=== PATIENT | female | born 1990 | race Caucasian/White ===

== ENCOUNTER 2017-10-26 14:18 | Emergency (ER) | payer OTHER ==
--- NOTE | 2017-10-26 14:57 | ER ---
Nurse's Notes [facility] Name: Porsche Brink Age: 27 yrs Sex: Female : 1990 Arrival Date: 10/26/2017 Time: 14:24 Bed Waiting Private MD: Diagnosis: Presentation: 10/26 14:29 Presenting complaint: Patient states: upper abd pain and diarrhea that began 4-5 days aa5 ago. Pt reports nausea, denies vomiting. Pt reports she is currently . Transition of care: patient was not received from another setting of care. Onset of symptoms was October 2017. Risk Assessment: Do you want to hurt yourself or someone else? Patient reports no desire to harm self or others. Initial Sepsis Screen: Does the patient meet any 2 criteria? No. Patient's initial sepsis screen is negative. Does the patient have a suspected source of infection? No. Patient's initial sepsis screen is negative. Care prior to arrival: None. 14:29 Method Of Arrival: Ambulatory aa5 14:29 Acuity: SILVESTRE 3 aa5 14:45 Note Called pt's name out in ER lobby with no response. Patient screening representative aa5 stated pt had just walked out of ER and stated that she was going home. PHOTO CHECKER: 14:31 LMP 10/23/2017 aa5 Historical: - Allergies: 14:31 No Known Allergies; aa5 - PMHx: 14:31 None; aa5 - PSHx: 14:31 Tubal ligation; aa5 - Immunization history:: Adult Immunizations up to date. - Social history:: Smoking status: Patient/guardian denies using tobacco. - Ebola Screening: : No symptoms or risks identified at this time. Vital Signs: 14:31 BP 140 / 95; Pulse 81; Resp 16 S; Temp 98.0(TE); Pulse Ox 99% on R/A; Weight 81.65 kg aa5 (R); Height 5 ft. 5 in. (165.10 cm) (R); Pain 6/10; 14:31 Body Mass Index 29.95 (81.65 kg, 165.10 cm) aa5 ED Course: 14:24 Patient arrived in ED. mr 14:30 Triage completed. aa5 14:30 Arm band placed on. aa5 14:56 Jay Vazquez MD is Attending Physician. aa5 Administered Medications: No medications were administered Outcome: 14:56 Patient left the ED. aa5 Signatures: Vianca Pathak Audri, RN RN aa5
== END 2017-10-26 14:56 | disposition left against medical advice (07) ==
LOC: ER 14:18
DX: Z53.21 Procedure and treatment not carried out due to patient leaving prior to being seen by health care provider (principal)
CPT/HCPCS: 99281